=== PATIENT | male | born 1995 | race Caucasian/White ===

== ENCOUNTER 2018-12-12 21:25 | Emergency (ER) | payer BC ==
[2018-12-12] MEDS ORDERED: Glucagon* 1 MG VIAL IM ONE (22:49)
--- NOTE | 2018-12-13 00:58 | ED ---
Throat Pain/Nasal Congestion - HPI Summary HPI Summary: Patient complains of esophageal foreign body after eating tacos tonight. Patient not tolerating saliva. No respiratory distress. History of prior episodes of same, states occurs once every 2 weeks. No prior prior evaluation for same. States food usually passes if patient drinks lots of water. This time foreign body did not pass. Denies any other symptoms pain or injury. Medical history is none. - History of Current Complaint Chief Complaint: EDForeignBodyEsophag Time Seen by Provider: 12/12/18 22:49 Hx Obtained From: Patient Onset/Duration: Sudden Onset Severity: Moderate Associated Signs And Symptoms: Positive: FB Sensation Cough: None - Allergies/Home Medications Allergies/Adverse Reactions: Allergies Allergy/AdvReac Type Severity Reaction Status Date / Time No Known Allergies Allergy Verified 12/13/18 07:02 Home Medications: Home Medications Fluticasone NASAL SPRAY 50MCG* [Flonase NASAL SPRAY 50MCG*] 2 spray BOTH NARES DAILY 12/12/18 [History Confirmed 12/12/18] PMH/Surg Hx/FS Hx/Imm Hx Endocrine/Hematology History: Denies: Hx Anticoagulant Therapy Cardiovascular History: Denies: Hx Pacemaker/ICD History: Denies: Hx Dialysis Sensory History: Denies: Hx Eye Prosthesis Opthamlomology History: Denies: Hx Legally Blind EENT History: Denies: Hx Deafness Neurological History: Denies: Hx Dementia Psychiatric History: Denies: Hx Autism Infectious Disease History: No Infectious Disease History: Denies: Traveled Outside the [place] in Last 30 Days - Family History Known Family History: Positive: Non-Contributory - Social History Alcohol Use: Occasionally Substance Use Type: Reports: None Smoking Status (MU): Never Smoked Tobacco Review of Systems Constitutional: Negative Eyes: Negative ENT: Negative Cardiovascular: Negative Respiratory: Negative Gastrointestinal: Negative Genitourinary: Negative Musculoskeletal: Negative Skin: Negative Neurological: Negative Psychological: Normal All Other Systems Reviewed And Are Negative: Yes Physical Exam Triage Information Reviewed: Yes Vital Signs On Initial Exam: Initial Vitals Temp Pulse Resp BP Pulse Ox 99.2 F 94 18 113/69 98 12/12/18 21:26 12/12/18 21:26 12/12/18 21:26 12/12/18 21:26 12/12/18 21:26 Vital Signs Reviewed: Yes Appearance: Positive: Well-Appearing Skin: Positive: Warm Head/Face: Positive: Normal Head/Face Inspection Eyes: Positive: Normal ENT: Positive: Normal ENT inspection Neck: Positive: Supple Respiratory/Lung Sounds: Positive: Clear to Auscultation Cardiovascular: Positive: Normal Abdomen Description: Positive: Nontender Musculoskeletal: Positive: Normal Neurological: Positive: Normal Psychiatric: Positive: Normal AVPU Assessment: Alert - Shirlene Coma Scale Best Eye Response: 4 - Spontaneous Best Motor Response: 6 - Obeys Commands Best Verbal Response: 5 - Oriented Coma Scale Total: 15 Diagnostics - Vital Signs Vital Signs Temp Pulse Resp BP Pulse Ox 12/12/18 23:37 98.4 F 60 17 134/61 96 12/12/18 21:26 99.2 F 94 18 113/69 98 - Laboratory Lab Statement: Any lab studies that have been ordered have been reviewed, and results considered in the medical decision making process. EENT Course/Dx - Course Course Of Treatment: Patient complains of esophageal foreign body after eating tacos tonight. Patient not tolerating saliva. No respiratory distress. History of prior episodes of same, states occurs once every 2 weeks. No prior prior evaluation for same. States food usually passes if patient drinks lots of water. This time foreign body did not pass. Denies any other symptoms pain or injury. Medical history is none. Physical exam unremarkable. Vital signs within normal limits. Patient was able to pass foreign body with administration of glucagon 1 mg IM. Patient tolerated fluids and apple sauce. Tolerating saliva. Patient advised to follow-up with GI for endoscopy. Patient understands and approves of plan. - Diagnoses Provider Diagnoses: Esophageal foreign body Discharge - Sign-Out/Discharge Documenting (check all that apply): Patient Departure Patient Received Moderate/Deep Sedation with Procedure: No - Discharge Plan Condition: Stable Disposition: HOME Patient Education Materials: Esophageal Foreign Body (ED) Referrals: Tyrese Conteh MD [Primary Care Provider] - Toby Herzog MD [Medical Doctor] - Additional Instructions: Follow-up with GI Dr. Herzog for further evaluation of recurrent food impaction. Return to the ED for any new or worsening symptoms. - Billing Disposition and Condition Condition: STABLE Disposition: Home
[2018-12-13 01:15] VITALS: BP 150/68
== END 2018-12-13 01:14 | disposition home or self-care (01) ==
LOC: ED 21:25
DX: T18.128A Food in esophagus causing other injury, initial encounter (principal); X58.XXXA Exposure to other specified factors, initial encounter; Y92.9 Unspecified place or not applicable
CPT/HCPCS: 96372; 99283; J1610